=== PATIENT | male | born 1955 | race Caucasian/White ===

== ENCOUNTER → 2016-12-27 | Outpatient (CLI) | payer OTHER ==
[~2016-12-27] MED LIST: GADOBUTROL 10 ML VIAL IVP ONE
== END ==
LOC: FIMAGING 07:37
PROVIDERS: ATTEND Specialist
DX: N41.1 Chronic prostatitis (principal); R97.20 Elevated prostate specific antigen [PSA]
CPT/HCPCS: A9585